=== PATIENT | male | born 1955 | race Caucasian/White ===

== ENCOUNTER 2017-04-24 18:02 | Inpatient (IN) | payer SELFPAY ==
[~2017-04-24] VITALS: Ht 182.9 cm; Wt 66.3 kg
[2017-04-26] MEDS ORDERED: NICOTINE PATCH1 EAC5 TD (20:00)
[2017-04-26] MEDS ORDERED: VITAMIN B1100 MG PO (20:00)
[2017-04-26] MEDS ORDERED: FOLIC ACID1 MG PO (20:01)
--- NOTE | 2017-04-27 10:25 | HP ---
ADMIT: 04/24/2017 RM/LOC: 408 [facility] MR#: [id number] [facility]#: [id number] [address] [facility] [address] [place], [place] [address] MARICARMEN LINARES [address] [place] [address] History and Physical SEX: M AGE: 62 : 1955 DATE OF SERVICE: CHIEF COMPLAINT: Possible seizure-like activity. HISTORY OF PRESENT ILLNESS: Mr. Linares is a 62-year-old man, he does not get any medical care and denies any medical problems. He apparently was with his family at a bar [employer] and passed out. The family apparently had reported to the full time babysitter that he had some seizure-like activity. The patient denies any history of seizure-like activity, but apparently the family who never did come to the hospital reported that he has had seizure-like activity with drinking before. He reports that he does not think he has a drinking problem, but on further asking, he has lost his license and been in prison for his drinking. He reports he had quit before when he was in prison. Otherwise, he denies any other complaints. It was noted on initial evaluation, his sodium was low and his EKG had some anterior flipped T-waves, felt warranted admission for further evaluation and treatment. He denies any chest pain or any other symptoms at this time. PAST MEDICAL HISTORY: Significant for no reported past medical history. MEDICATIONS: None. SOCIAL HISTORY: . He smokes a pack a day and has for 45 years. He also drinks at least a 6-pack or more a day of beer, although I feel like he is underestimating this. FAMILY HISTORY: Positive for cancer and hypertension. REVIEW OF SYSTEMS: Obtained, was otherwise essentially negative. PHYSICAL EXAMINATION: VITAL SIGNS: Blood pressure 162/99, with a pulse of 77, respirations of 18, temperature is 98.4, his O2 is 90% on room air. GENERAL: He is very thin. He is alert. He is oriented. He is no apparent distress. He is not shaky. He has very poor dentition. HEART: Has normal rate with a regular rhythm. LUNGS: Have diminished breath sounds bilaterally. ABDOMEN: Soft. Bowel sounds are present. ADMIT: 04/24/2017 RM/LOC: 408 [facility] MR#: [id number] [address] [address] MARICARMEN LINARES [address] [place] [address] History and Physical SEX: M AGE: 62 : 1955 EXTREMITIES: Have no evidence of edema. ASSESSMENT AND PLAN: 1. Syncope. Whether or not this is due to alcohol intoxication versus hyponatremia. We will go ahead and admit, give him IV fluids, we will watch him on tele. 2. Abnormal EKG. We will repeat an EKG as well as a troponin I in the morning. 3. Alcoholism. We will sales counselor him on the importance of alcohol cessation, make sure he has some thiamine, folate, magnesium. Watch for signs of alcohol withdrawal. Ayleen Muir MD/ jyothil JOB #: [id number] CC: Ayleen Muir, Attending Physician Ayleen Muir, Family Physician
--- NOTE | 2017-04-27 10:25 | DS ---
ADMIT: 04/24/2017 RM/LOC: 408 [facility] MR#: [id number] [facility]#: [id number] [address] [facility] [address] [place] [id number] MARICARMEN LINARES [address] [place] [address] Discharge Summary SEX: M AGE: 62 : 1955 ADMISSION DATE: 04/24/2017 DISCHARGE DATE: 04/25/2017 DISCHARGE DIAGNOSES: 1. Possible syncope. 2. Alcohol intoxication. 3. Alcoholism. 4. Hyponatremia. 5. Hypokalemia. 6. Chronic ischemic changes on a CT scan of his head. 7. Abnormal EKG with anterior flipped T-waves. 8. Alcoholism. 9. Nicotine dependence. HOSPITAL COURSE: The patient was admitted, watched overnight on tele with no abnormalities, he was given IV fluids. The next morning, his sodium had improved. He had shown no signs or symptoms of withdrawal. He had also shown no signs or symptoms of seizures. He was feeling fine and the plan was for him to be discharged home. He had a repeat EKG, which again showed the anterior flipped T-waves. The plan was for the patient to not drink and to quit smoking. He was to keep a followup appointment with Dr. Muir in 1 week. He was to get an outpatient stress test to be scheduled after his appointment with Dr. Muir, and also plan to further evaluate him by checking some fasting lipids and see whether or not he warranted some statin therapy. DISCHARGE INSTRUCTIONS: He was discharged to home on thiamine 100 mg p.o. daily and folate 1 mg p.o. daily. He is to keep the followup. He is also encouraged to quit drinking and was given contact information for Alcoholics Anonymous. The time I spent on the discharge and discharge planning of the patient was 25 minutes. Ayleen Muir MD/ avtar JOB #: [id number] CC: Ayleen Muir MD, Attending Physician Ayleen Muir MD, Family Physician
--- NOTE | 2017-04-29 14:21 | ER ---
ADMIT: 04/24/2017 RM/LOC: 408 [facility] MR#: [id number] [facility]#: [id number] [address] [facility] [address] [place], [place] [address] MARICARMEN LINARES [address] [place] [address] Emergency Room Report SEX: M AGE: 62 : 1955 DATE: 04/24/2017 CHIEF COMPLAINT: Possible seizure. HISTORY OF PRESENT ILLNESS: This 62-year-old white male presents to the EMS after a seizure-like activity in a bar prior to arrival. EMS reports he was drinking with family members in a bar when he began shaking, primarily on the right side. States he lost consciousness. He was unresponsive. 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 States all he remembers is blacking out and arriving in the hospital. EMS characterized confusion, speech difficulties, however, the patient is acutely intoxicated and admits to heavy alcohol use. Denies any injuries. He has no pain. PAST MEDICAL HISTORY: Denies headache or other medical problems. MEDICATIONS: No medications. ALLERGIES: NO ALLERGIES. SOCIAL HISTORY: Does admit to smoke half a pack per day. COURSE IN THE EMERGENCY ROOM: GENERAL: The patient was seen and examined. Afebrile, nontoxic. No acute distress. He is intoxicated. HEENT: Normocephalic and atraumatic. Pupils are equal and reactive. NECK: Soft and supple. He has full range of motion. CHEST: Clear. HEART: Regular. ABDOMEN: Soft, nontender. SKIN: Warm and dry. EXTREMITIES: Nontender. No pedal edema. NEURO: He is alert and oriented. He does have slurred speech. Cranial nerves are normal as tested. No facial droops. Motor and sensation intact in upper and lower extremities. CT of the head was obtained, no acute abnormalities, some chronic ischemic changes. EKG shows a rate of 73, he has normal sinus rhythm. There is T-wave inversion in V3 through V5, however, there is no previous EKGs to compare this to. Troponin was negative. Chemistries return with sodium 126, potassium 3.4, glucose 112, calcium is 8.1, Mag 1.8. Ethanol 268. White count 4.5, hemoglobin 13.6, hematocrit 37.0, platelets 233. While in the Department, he did receive a liter of normal saline as well as ADMIT: 04/24/2017 RM/LOC: 408 [facility] MR#: [id number] [address] [address] MARICARMEN LINARES [address] [place] [address] Emergency Room Report SEX: M AGE: 62 : 1955 thiamine [address] Muir, on-call for [facility] Call today, will admit for further treatment of the hyponatremia. CLINICAL IMPRESSION: 1. Possible seizure. 2. Hyponatremia. 3. Hypokalemia. 4. EtOH abuse with acute intoxication. DISPOSITION: He is admitted to [facility] for further observation and management at this time. He is admitted to the floor in stable condition. AKOSUA Avery / Marito Ozuna MD / jyothil JOB #: [id number] CC: Ayleen Muir MD, Attending Physician Ayleen Muir MD, Family Physician
== END 2017-04-25 08:36 | disposition home or self-care (01) | DRG 312 ==
LOC: ER 18:02 → 4PCU 19:43
PROVIDERS: ADMIT Internal Medicine
PROC: HZ2ZZZZ Detoxification Services for Substance Abuse Treatment (ICD-10-PCS; principal; 2017-04-24)
DX: R55 Syncope and collapse (principal); E87.1 Hypo-osmolality and hyponatremia; F17.210 Nicotine dependence, cigarettes, uncomplicated; F10.229 Alcohol dependence with intoxication, unspecified; E87.6 Hypokalemia; R94.31 Abnormal electrocardiogram [ECG] [EKG]